=== PATIENT | male | born 1990 | race Caucasian/White ===

== ENCOUNTER 2017-03-16 23:04 | Emergency (ER) | payer SELFPAY ==
[~2017-03-16] VITALS: Ht 165.1 cm; Wt 81.6 kg
[~2017-03-16 23:04] MED LIST: ANSAID100 MG PO; DILANTIN; DILANTIN PO; DOXYCYCLINE PO; GEODAN PO; KEFLEX PO; LITHIUM; LITHIUM PO; NO MEDICATIONS; SEROQUEL PO; WALGREENS PHARMACY
== END 2017-03-17 01:04 | disposition home or self-care (01) ==
LOC: SED 23:04
DX: K05.00 Acute gingivitis, plaque induced (principal); F17.210 Nicotine dependence, cigarettes, uncomplicated
CPT/HCPCS: 99282

== ENCOUNTER 2017-03-31 19:09 | Emergency (ER) | payer OTHER ==
[~2017-03-31] VITALS: Ht 167.6 cm; Wt 81.6 kg
== END 2017-03-31 20:00 | disposition home or self-care (01) ==
LOC: SED 19:09
DX: K02.9 Dental caries, unspecified (principal); Z87.891 Personal history of nicotine dependence; Z88.0 Allergy status to penicillin; Z88.8 Allergy status to other drugs, medicaments and biological substances
CPT/HCPCS: 99282